=== PATIENT | female | born 1975 | race Caucasian/White ===

== ENCOUNTER 2022-09-05 19:26 | Emergency (ER) | payer MEDICAID ==
[~2022-09-05] VITALS: Ht 154.9 cm; Wt 80.3 kg
[2022-09-05 19:32] VITALS: BP_SYST 178
[2022-09-05 20:08] LABS: BILIRUBIN,URINE NEGATIVE (NEGATIVE); BLOOD, URINE NEGATIVE (NEGATIVE); CLARITY/URINE CLEAR (CLEAR); COLOR,URINE YELLOW (YELLOW); GLUCOSE,URINE NEGATIVE (NEGATIVE); KETONES,URINE NEGATIVE (NEGATIVE); LEUKOCYTE ESTERASE ,URINE NEGATIVE (NEGATIVE); NITRITE, URINE NEGATIVE (NEGATIVE); PH,URINE 8.5 (5.0-8.0); PROTEIN URINE NEGATIVE (NEGATIVE); UROBILINOGEN,URINE 0.2 (0.2-1.0)
[2022-09-05 20:11] LABS: HCG,QUAL RESULT NEGATIVE (NEGATIVE)
[2022-09-05] MEDS ORDERED: CYCL10TA24 PO (20:15)
[2022-09-05] MEDS ORDERED: LIDOINT TP (20:15)
[2022-09-05] MEDS ORDERED: LIDOCAINE PATCH 5% 1 EA TP ONE (20:15)
[2022-09-05] MEDS ORDERED: IBUP-1970 PO (20:15)
[2022-09-05] MEDS ORDERED: ACET-2634 PO (20:15)
[2022-09-05 20:42] VITALS: BP_SYST 122
== END 2022-09-05 20:42 | disposition home or self-care (01) ==
LOC: SED 19:26
DX: M54.31 Sciatica, right side (principal); M25.551 Pain in right hip; M25.561 Pain in right knee; Z79.899 Other long term (current) drug therapy
CPT/HCPCS: 81003; 81025; 84703; 99283; 99284